=== PATIENT | female | born 1985 | race African-American/Black ===

== ENCOUNTER 2021-09-26 11:55 | Observation (INO) | payer BC ==
[2021-09-26] MEDS ORDERED: SODIUM CHLORIDE 0.9% 500 ML 500 ML IV ONE (12:13)
[2021-09-26] MEDS ORDERED: diphenhydrAMINE 25 MG CAP PO PRN (12:15)
[2021-09-26] MEDS ORDERED: ACETAMINOPHEN 325 MG TAB PO PRN (12:15)
--- NOTE | 2021-09-26 12:22 | History and Physical Report ---
History of Present Illness Date of examination: 09/26/21 Chief complaint: Excessive menstruation resulting in anemia. History of present illness: 36 y.o.female presented in office on 09/25/21 with c/o excessive menstruation. Reports repeat C/S delivery on 05/26/21. She had her first menstrual cycle on 08/14 that started with daily vaginal spotting and white discharge up until 08/22. Then her bleeding pattern became heavy with large clots from 08/22-08/27. Changed pad 3-4 times per day. Now from 08/27-present her bleeding pattern varies between light and moderate with occassional small clots. Uses no hormonal contraception and has not had intercourse since delivery. Not . D enies lightheadedness, dizziness, blurry vision, chest pain, ABD/pelvic pain, thyroid disease, fibroids, ovarian cysts, PCOS, polyps, or endometriosis. Past History Past Medical History: no pertinent history Past Surgical History: section (x 3) Family/Genetic History: none Social history: no significant social history, Medications and Allergies Allergies Allergy/AdvReac Type Severity Reaction Status Date / Time No Known Allergies Allergy Unverified 09/26/21 12:09 Active Meds: Active Medications Acetaminophen (Acetaminophen 325 Mg Tab) 325 mg PO Q6H PRN PRN Reason: Pain, Mild (1-3) Diphenhydramine HCl (Diphenhydramine 25 Mg Cap) 25 mg PO Q6H PRN PRN Reason: Itching Sodium Chloride (Nacl 0.9% 500 Ml) 500 mls @ 0 mls/hr IV ONCE ONE Stop: 09/26/21 12:14 Review of Systems All systems: negative Genitourinary: vaginal bleeding - Physical Exam Breasts: Positive: deferred Cardiovascular: Regular rate Lungs: Positive: Normal air movement Abdomen: Positive: normal appearance, soft Genitourinary (Female): Positive: normal external genitalia Vagina: Positive: other (moderate bleeding seen in canal d/t menses) Uterus: Positive: normal size Extremities: Positive: normal Deep Tendon Reflex Grade: Normal +2 Results All other labs normal. Assessment and Plan 36 y.o. female seen in office on 09/25/21 with c/o excessive menses. Uses no primary form of contraception. CBC collected. H/H 03/19. Pt asymptomatic. Takes no supplemental iron. P: Transfuse 2 units PRBCs. Started Provera Rx for active bleeding. F/U in office in 2 wks for [facility] U/S. - Patient Problems (1) Chronic blood loss anemia Status: Acute
[2021-09-26 15:33] LABS: Basophils % (Auto) 0.6 % (0.0-1.8); Eosinophils % (Auto) 0.5 % (0.0-4.3); Hemoglobin 6.7 gm/dl (10.1-14.3); Lymphocytes # (Auto) 1.5 K/mm3 (1.2-5.4); Lymphocytes % (Auto) 30.5 % (13.4-35.0); Mean Corpuscular HGB Conc 32 % (30-34); Mean Corpuscular Volume 78 fl (79-97); Monocytes # (Auto) 0.4 K/mm3 (0.0-0.8); Monocytes % (Auto) 7.2 % (0.0-7.3); Platelet Count 269 K/mm3 (140-440); Red Cell Distribution Width 13.4 % (13.2-15.2)
[2021-09-26] MEDS ORDERED: SODIUM CHLORIDE 0.9% 500 ML 500 ML ONE (15:39)
[2021-09-26] MEDS ORDERED: medroxyPROGESTERone ACETATE 5 MG TAB PO SCH (21:00)
[2021-09-26 21:43] LABS: Hematocrit 25.9 % (30.3-42.9); Hemoglobin 8.4 gm/dl (10.1-14.3)
--- NOTE | 2021-09-26 22:46 | Discharge Summary ---
Providers - Providers Date of Admission: 09/26/21 13:25 Date of discharge: 09/26/21 Attending physician: ASHVIN SORIA Primary care physician: GOMEZ HORTON MD Hospitalization Condition: Good Procedures: Blood transfusion Hospital course: Normal Disposition: 01 HOME / SELF CARE / HOMELESS Final Discharge Diagnosis (Prints w/discharge instructions): Menorrhagia, Anemia - Discharge Diagnoses (1) Anemia Status: Chronic Qualifiers: Iron deficiency anemia type: chronic blood loss (2) Menorrhagia Status: Chronic (3) Chronic blood loss anemia Status: Chronic Core Measure Documentation - Palliative Care Palliative Care/ Comfort Measures: Not Applicable - Core Measures Any of the following diagnoses?: none Exam - Constitutional Vitals: Temp Pulse Resp BP Pulse Ox 98.0 F 93 H 18 118/76 98 09/26/21 19:06 09/26/21 19:06 09/26/21 19:06 09/26/21 19:06 09/26/21 19:06 Plan Activity: advance as tolerated (No strenuous activity) Weight Bearing Status: Full Weight Bearing Diet: regular Follow up with: GOMEZ HORTON MD [Primary Care Provider] - 7 Days JACOB ARREDONDO MD [Staff Physician] - 10/01/21 3:15 pm ([place]) Forms: [facility] Discharge Summary
[2021-09-26 22:49] VITALS: BP 124/87
== END 2021-09-26 23:41 | disposition home or self-care (01) ==
LOC: UNDOADMOB 11:55 → 3A 11:55 → OB 13:25
PROVIDERS: ADMIT Obstetrics & Gynecology; ATTEND Obstetrics & Gynecology
DX: D50.0 Iron deficiency anemia secondary to blood loss (chronic) (principal); N92.0 Excessive and frequent menstruation with regular cycle; Z98.891 History of uterine scar from previous surgery
CPT/HCPCS: 36415; 36430; 85014; 85018; 85025; 86850; 86900; 86901; 86920; G0378; G0379; P9016